=== PATIENT | female | born 1960 | race African-American/Black ===

== ENCOUNTER → 2020-01-05 | Outpatient (CLI) | payer MEDICAID | END | disposition home or self-care (01) | LOC: LAB 12:56 | PROVIDERS: ATTEND Ophthalmology | DX: U07.1 COVID-19 (principal) | CPT/HCPCS: C9803; U0003 ==

== ENCOUNTER → 2020-01-27 | Day surgery (SDC) | payer MEDICAID ==
[~2020-01-27] VITALS: Ht 167.6 cm; Wt 90.7 kg
[~2020-01-27] MED LIST: AMLO10TA80 PO; ASPI-1497 PO; ATOR40TA70 PO; BALANCED SALT IRRIG SOLN 15ML ONE; BALANCED SALT IRRIG SOLN COMB1 500ML OP ONE; BENA40TA9 PO; CIPROFLOXACIN 0.3% OPHTH SOLN 2.5ML ONE; CYCLOPENTOLATE HCL 1% OPHTH DROPS 2ML LEFTEYE NR; FENTANYL CITRATE/PF 50MCG/ML 2ML VIAL ONE; GLIP5TAB12 PO; HYALURONATE SODIUM 10 MG/ML 0.55ML SYRINGE IO ONE; LACTATED RINGERS 1,000 ML IV SCH; LOPE2CAP PO; LOSA50TA41 PO; METF-414 PO; MIDAZOLAM HCL 2 MG/2 ML VIAL ONE; NEO/POLYMYX B SULF/DEXAMETH OPHTH OINT 3.5GM ONE; PHENYLEPHRINE HCL 10% OPHTH DROPS 5ML LEFTEYE NR; PHENYLEPHRINE HCL 10% OPHTH DROPS 5ML LEFTEYE ONE; PREDNISOLONE ACETATE 1% OPHTH DROPS 5ML ONE; TETRACAINE 0.5% OPHTH DROPS 4ML ONE; TROPICAMIDE 1% OPHTH DROPS 15ML LEFTEYE NR; TROPICAMIDE 1% OPHTH DROPS 15ML LEFTEYE ONE
[2020-01-27 10:00] LABS: BASOPHILS % 0.7 % (0.0-2.0); EOSINOPHILS % 1.8 % (0.0-5.0); HEMATOCRIT. 30.3 % (36.0-48.0); HEMOGLOBIN. 9.9 g/dL (12.0-16.0); LYMPHOCYTES % 40.4 % (20.0-50.0); MEAN CORPUSCULAR HEMOGLOBIN 24.9 pg (28.0-32.0); MEAN CORPUSCULAR VOLUME 76.1 fL (81.0-99.0); MEAN PLATELET VOLUME 8.3 fl (7.4-10.4); MONOCYTES % 8.4 % (2.0-8.0); NEUTROPHILS % 48.7 % (40.0-76.0); PLATELET 399 x1000/uL (130-400); RED BLOOD CELL COUNT 3.99 mill/uL (4.2-5.4); RED CELL DISTRIBUTION WIDTH 15.3 % (11.6-14.6)
[2020-01-27 10:04] LABS: CHLORIDE 110 mEq/L (98-107)
== END | disposition home or self-care (01) ==
LOC: OR 08:35
PROVIDERS: ATTEND Ophthalmology
DX: E11.36 Type 2 diabetes mellitus with diabetic cataract (principal); H25.89 Other age-related cataract; I10 Essential (primary) hypertension; E78.00 Pure hypercholesterolemia, unspecified; F20.9 Schizophrenia, unspecified; E66.9 Obesity, unspecified; E11.65 Type 2 diabetes mellitus with hyperglycemia; G44.219 Episodic tension-type headache, not intractable; Z68.32 Body mass index [BMI] 32.0-32.9, adult; Z79.82 Long term (current) use of aspirin; Z79.899 Other long term (current) drug therapy; Z98.890 Other specified postprocedural states; Z79.84 Long term (current) use of oral hypoglycemic drugs
CPT/HCPCS: 36415; 66984; 80048; 85025; 87426; J2250; J3010; J3490

== ENCOUNTER → 2020-07-30 | Outpatient (CLI) | payer MEDICAID ==
[~2020-07-30] MED LIST changes: -BALANCED SALT IRRIG SOLN 15ML ONE; -BALANCED SALT IRRIG SOLN COMB1 500ML OP ONE; -CIPROFLOXACIN 0.3% OPHTH SOLN 2.5ML ONE; -CYCLOPENTOLATE HCL 1% OPHTH DROPS 2ML LEFTEYE NR; -FENTANYL CITRATE/PF 50MCG/ML 2ML VIAL ONE; -HYALURONATE SODIUM 10 MG/ML 0.55ML SYRINGE IO ONE; -LACTATED RINGERS 1,000 ML IV SCH; -MIDAZOLAM HCL 2 MG/2 ML VIAL ONE; -NEO/POLYMYX B SULF/DEXAMETH OPHTH OINT 3.5GM ONE; -PHENYLEPHRINE HCL 10% OPHTH DROPS 5ML LEFTEYE NR; -PHENYLEPHRINE HCL 10% OPHTH DROPS 5ML LEFTEYE ONE; -PREDNISOLONE ACETATE 1% OPHTH DROPS 5ML ONE; -TETRACAINE 0.5% OPHTH DROPS 4ML ONE; -TROPICAMIDE 1% OPHTH DROPS 15ML LEFTEYE NR; -TROPICAMIDE 1% OPHTH DROPS 15ML LEFTEYE ONE
== END | disposition home or self-care (01) ==
LOC: LAB 07:57
PROVIDERS: ATTEND Ophthalmology
DX: Z01.812 Encounter for preprocedural laboratory examination (principal); Z20.822 Contact with and (suspected) exposure to COVID-19
CPT/HCPCS: 87426

== ENCOUNTER → 2020-08-03 | Day surgery (SDC) | payer MEDICAID ==
[~2020-08-03] VITALS: Ht 167.6 cm; Wt 90.7 kg
[~2020-08-03] MED LIST changes: +ATOR20TA65 PO; +BALANCED SALT IRRIG SOLN 15ML ONE; +BALANCED SALT IRRIG SOLN COMB1 500ML OP ONE; +CIPROFLOXACIN 0.3% OPHTH SOLN 2.5ML ONE; +FENTANYL CITRATE/PF 50MCG/ML 2ML VIAL ONE; +HYALURONATE SODIUM 10 MG/ML 0.55ML SYRINGE IO ONE; +KETOROLAC 30MG/ML VIAL ONE; +LIDOCAINE HCL/PF 2% 20 MG/ML 10ML VIAL ONE; +MIDAZOLAM HCL 2 MG/2 ML VIAL ONE; +NEO/POLYMYX B SULF/DEXAMETH OPHTH OINT 3.5GM ONE; +OLAN5TAB3 PO; +PHENYLEPHRINE HCL 10% OPHTH DROPS 5ML ONE; +PHENYLEPHRINE HCL 10% OPHTH DROPS 5ML RIGHTEYE ONE; +PREDNISOLONE ACETATE 1% OPHTH DROPS 5ML ONE; +SODIUM CHLORIDE 0.9% 1,000 ML IV SCH; +TETRACAINE 0.5% OPHTH DROPS 4ML ONE; +TROPICAMIDE 1% OPHTH DROPS 15ML ONE; +TROPICAMIDE 1% OPHTH DROPS 15ML RIGHTEYE ONE
== END | disposition home or self-care (01) ==
LOC: OR 08:35
PROVIDERS: ATTEND Ophthalmology
DX: E11.36 Type 2 diabetes mellitus with diabetic cataract (principal); H25.89 Other age-related cataract; I10 Essential (primary) hypertension; E78.00 Pure hypercholesterolemia, unspecified; F20.9 Schizophrenia, unspecified; E66.9 Obesity, unspecified; Z79.82 Long term (current) use of aspirin; Z79.84 Long term (current) use of oral hypoglycemic drugs; Z79.899 Other long term (current) drug therapy; Z98.890 Other specified postprocedural states; Z68.32 Body mass index [BMI] 32.0-32.9, adult
CPT/HCPCS: 66984; 82962; J1885; J2250; J3010; J3490; V2632

== ENCOUNTER 2020-11-22 17:46 | Emergency (ER) | payer MEDICAID ==
[~2020-11-22] VITALS: Ht 172.7 cm; Wt 99.0 kg
[~2020-11-22 17:46] MED LIST changes: -ATOR40TA70 PO; -BALANCED SALT IRRIG SOLN 15ML ONE; -BALANCED SALT IRRIG SOLN COMB1 500ML OP ONE; -CIPROFLOXACIN 0.3% OPHTH SOLN 2.5ML ONE; -FENTANYL CITRATE/PF 50MCG/ML 2ML VIAL ONE; -HYALURONATE SODIUM 10 MG/ML 0.55ML SYRINGE IO ONE; -KETOROLAC 30MG/ML VIAL ONE; -LIDOCAINE HCL/PF 2% 20 MG/ML 10ML VIAL ONE; -MIDAZOLAM HCL 2 MG/2 ML VIAL ONE; -NEO/POLYMYX B SULF/DEXAMETH OPHTH OINT 3.5GM ONE; -PHENYLEPHRINE HCL 10% OPHTH DROPS 5ML ONE; -PHENYLEPHRINE HCL 10% OPHTH DROPS 5ML RIGHTEYE ONE; -PREDNISOLONE ACETATE 1% OPHTH DROPS 5ML ONE; -SODIUM CHLORIDE 0.9% 1,000 ML IV SCH; -TETRACAINE 0.5% OPHTH DROPS 4ML ONE; -TROPICAMIDE 1% OPHTH DROPS 15ML ONE; -TROPICAMIDE 1% OPHTH DROPS 15ML RIGHTEYE ONE
[2020-11-22 17:50] VITALS: BP 137/76
== END 2020-11-23 00:07 | disposition left against medical advice (07) ==
LOC: ER 17:46
DX: R07.89 Other chest pain (principal); Z53.21 Procedure and treatment not carried out due to patient leaving prior to being seen by health care provider
CPT/HCPCS: 93005

== ENCOUNTER 2023-01-09 12:31 | Emergency (ER) | payer MEDICAID ==
[~2023-01-09] VITALS: Ht 172.7 cm; Wt 100.0 kg
[~2023-01-09 12:31] MED LIST changes: -BENA40TA9 PO; +BENA40TA91 PO; -GLIP5TAB12 PO; +GLIP5TAB22 PO
[2023-01-09 12:44] VITALS: BP 117/60; O2SAT 100
[2023-01-09 13:27] LABS: BASOPHILS % 0.9 % (0.0-2.0); DIFFERENTIAL COMMENT 0; HEMATOCRIT. 30.9 % (36.0-48.0); HEMOGLOBIN. 9.8 g/dL (12.0-16.0); LYMPHOCYTES % 36.5 % (20.0-50.0); MEAN CORPUSCULAR HEMOGLOBIN 24.3 pg (28.0-32.0); MEAN CORPUSCULAR HGB CONC 31.8 g/dL (31.0-37.0); MEAN CORPUSCULAR VOLUME 76.4 fL (81.0-99.0); MEAN PLATELET VOLUME 8.1 fl (7.4-10.4); MONOCYTES % 5.9 % (2.0-8.0); NEUTROPHILS % 54.7 % (40.0-76.0); PLATELET 476 x1000/uL (130-400); RED BLOOD CELL COUNT 4.04 mill/uL (4.2-5.4); RED CELL DISTRIBUTION WIDTH 17.1 % (11.6-14.6); WHITE BLOOD COUNT 5.4 x1000/uL (4.5-11.0)
[2023-01-09 13:59] LABS: CHLORIDE 109 mEq/L (98-107); INDEX HEMOLYSI 1 (1-3); INDEX ICTERIC 1 (1-4); INDEX LIPEMIC 1 (1-3); SODIUM 140 mEq/L (136-145)
[2023-01-09 14:08] LABS: ALANINE AMINOTRANSFERASE 15 IU/L (13-61); ALBUMIN 3.8 g/dL (3.4-5.0); ASPARTATE AMINOTRANSFERASE 11 IU/L (15-37); BILIRUBIN TOTAL 0.3 mg/dL (0.1-1.0); CALCIUM 9.4 mg/dL (8.5-10.1); CARBON DIOXIDE 25 mEq/L (21-32); CREATININE 1.1 mg/dL (0.6-1.3); GLUCOSE 184 mg/dL (70-105); PROTEIN TOTAL 7.8 g/dL (6.0-8.3); TROPONIN I HIGH SENSITIVITY 9 ng/L (<54); UREA NITROGEN BLOOD 17 mg/dL (7-21)
[2023-01-09 15:20] LABS: CLARITY URINE TURBID (CLEAR); COLOR URINE YELLOW (YELLOW); GLUCOSE URINE NEGATIVE (NEGATIVE); KETONES URINE NEGATIVE (NEGATIVE); LEUKOCYTE ESTERASE URINE 3+ (NEGATIVE); NITRITE URINE NEGATIVE (NEGATIVE); OCCULT BLOOD URINE 2+ (NEGATIVE); PH URINE 5.5 (4.5-8.0); PROTEIN URINE 2+ (NEGATIVE); SPECIFIC GRAVITY URINE 1.014 (1.005-1.030); UROBILINOGEN URINE 0.2 E.U./dL (0.2-1.0)
[2023-01-09 16:03] LABS: BACTERIA URINE 2+; SQUAMOUS EPITHELIAL CELL URINE 2+ /lpf (RARE/1+); WBC URINE TNTC /hpf (0-2)
[2023-01-09] MEDS ORDERED: CEFP100T8 MT (21:01)
[2023-01-09 21:20] VITALS: PULSE 89; RESP 18; TEMP 97.8
== END 2023-01-09 21:21 | disposition home or self-care (01) ==
LOC: ER 12:31
DX: K86.9 Disease of pancreas, unspecified (principal); N39.0 Urinary tract infection, site not specified; R05.9 Cough, unspecified; I10 Essential (primary) hypertension; F19.90 Other psychoactive substance use, unspecified, uncomplicated; F20.9 Schizophrenia, unspecified; Z86.73 Personal history of transient ischemic attack (TIA), and cerebral infarction without residual deficits
CPT/HCPCS: 36415; 71045; 74176; 80053; 81003; 84484; 85025; 93005; 99285

== ENCOUNTER 2024-11-12 18:15 | Inpatient (IN) | payer MEDICARE, MEDICAID ==
[~2024-11-12] VITALS: Ht 172.7 cm; Wt 90.9 kg
[2024-11-12 18:15] VITALS: BP 143/87; PULSE 105; RESP 18; TEMP 36.5; O2SAT 96
[~2024-11-12 18:15] MED LIST changes: +ATOR-2 MT; +CEFP100T8 MT; +CLOP-31 MT; +FAMO20TA8 MT; +OLAN10TA72 PO
[2024-11-12] MEDS ORDERED: IPRATROPIUM/ALBUTEROL 0.5-3(2.5)MG/3ML NEB HHN PRN (19:00)
[2024-11-12] MEDS ORDERED: ACETAMINOPHEN 325MG TABLET PO PRN ×2 (19:00→19:10)
[2024-11-12] MEDS ORDERED: ONDANSETRON HCL 4MG/2ML INJ IV PRN (19:00)
[2024-11-12] MEDS ORDERED: DOCUSATE SODIUM 100MG CAPSULE PO PRN (19:00)
[2024-11-12] MEDS ORDERED: GUAIFENESIN 200MG/10ML SUGAR FREE UDC PO PRN (19:00)
[2024-11-12] MEDS ORDERED: CLONIDINE 0.1MG TABLET PO PRN (19:00)
[2024-11-12 20:00] VITALS: BP 144/73; PULSE 72; RESP 18; TEMP 36.3; TEMP 36.3624; O2SAT 95
[2024-11-12] MEDS: ATORVASTATIN CALCIUM 40MG TABLET PO SCH (22:02)
[2024-11-12] MEDS: METOPROLOL TARTRATE 25MG TABLET PO SCH (22:03)
[2024-11-12] MEDS: FAMOTIDINE 20MG TABLET PO SCH (22:03)
[2024-11-12] MEDS: OLANZAPINE 10MG TABLET PO SCH (22:54)
[2024-11-13 05:20] LABS: BASOPHILS % 0.9 % (0.0-2.0); EOSINOPHILS % 2.9 % (0.0-5.0); HEMATOCRIT. 35.5 % (36.0-48.0); HEMOGLOBIN. 11.5 g/dL (12.0-16.0); LYMPHOCYTES % 35.8 % (20.0-50.0); MEAN PLATELET VOLUME 8.0 fl (7.4-10.4); MONOCYTES % 9.6 % (2.0-8.0); NEUTROPHILS % 50.8 % (40.0-76.0); PLATELET 328 x1000/uL (130-400); RED BLOOD CELL COUNT 4.27 mill/uL (4.2-5.4); RED CELL DISTRIBUTION WIDTH 13.7 % (11.6-14.6)
[2024-11-13 05:31] LABS: CREATININE 0.8 mg/dL (0.6-1.0); UREA NITROGEN BLOOD 12 mg/dL (9-23)
[2024-11-13 05:33] LABS: ASPARTATE AMINOTRANSFERASE 30 IU/L (<34); BILIRUBIN TOTAL 0.5 mg/dL (0.1-1.0); PROTEIN TOTAL 6.9 g/dL (6.0-8.3)
[2024-11-13 08:00] VITALS: BP 133/68; PULSE 72; RESP 16; TEMP 36.6; O2SAT 98
[2024-11-13] MEDS: METFORMIN HCL 500MG TABLET PO SCH (09:34)
[2024-11-13] MEDS: LOSARTAN 50 MG TABLET PO SCH (09:35)
[2024-11-13] MEDS: ASPIRIN 81MG TABLET PO SCH (09:35)
[2024-11-13] MEDS: CLOPIDOGREL 75MG TABLET PO SCH (09:35)
[2024-11-13] MEDS: AMLODIPINE 10MG TABLET PO SCH (09:36)
[2024-11-13 20:00] VITALS: BP 122/68; PULSE 76; RESP 18; TEMP 36.4; O2SAT 97
[2024-11-14 07:28] LABS: CLARITY URINE CLEAR (CLEAR); COLOR URINE YELLOW (YELLOW); GLUCOSE URINE NEGATIVE (NEGATIVE); KETONES URINE NEGATIVE (NEGATIVE); LEUKOCYTE ESTERASE URINE 2+ (NEGATIVE); NITRITE URINE NEGATIVE (NEGATIVE); OCCULT BLOOD URINE NEGATIVE (NEGATIVE); PH URINE 6.0 (4.5-8.0); PROTEIN URINE NEGATIVE (NEGATIVE); SPECIFIC GRAVITY URINE 1.008 (1.005-1.030); UROBILINOGEN URINE 0.2 E.U./dL (0.2-1.0)
[2024-11-14 07:41] LABS: BASOPHILS % 0.6 % (0.0-2.0); EOSINOPHILS % 1.9 % (0.0-5.0); HEMATOCRIT. 34.5 % (36.0-48.0); HEMOGLOBIN. 11.2 g/dL (12.0-16.0); LYMPHOCYTES % 32.5 % (20.0-50.0); MEAN PLATELET VOLUME 8.3 fl (7.4-10.4); MONOCYTES % 7.7 % (2.0-8.0); NEUTROPHILS % 57.3 % (40.0-76.0); PLATELET 334 x1000/uL (130-400); RED BLOOD CELL COUNT 4.11 mill/uL (4.2-5.4); RED CELL DISTRIBUTION WIDTH 14.1 % (11.6-14.6)
[2024-11-14 08:00] VITALS: BP 152/78; PULSE 103; RESP 18; TEMP 36.2; O2SAT 98
[2024-11-14 08:10] LABS: FOLIC ACID (FOLATE) SERUM 15.44 ng/mL (>5.38); VITAMIN B12 SERUM 572 pg/mL (211-911)
[2024-11-14 08:38] LABS: CREATININE 1.0 mg/dL (0.6-1.0); UREA NITROGEN BLOOD 15 mg/dL (9-23)
[2024-11-14 08:39] LABS: ASPARTATE AMINOTRANSFERASE 28 IU/L (<34); PROTEIN TOTAL 6.9 g/dL (6.0-8.3)
[2024-11-14 08:40] LABS: BILIRUBIN TOTAL 0.5 mg/dL (0.1-1.0)
[2024-11-14 08:45] LABS: SQUAMOUS EPITHELIAL CELL URINE 1+ /lpf (RARE/1+)
[2024-11-14 08:46] LABS: BACTERIA URINE TRACE; RBC URINE 0-2 /hpf (0-2)
[2024-11-14] MEDS: FERROUS SULFATE 325MG TABLET PO SCH (17:00)
[2024-11-14 20:00] VITALS: BP 115/75; PULSE 88; RESP 20; TEMP 36.4; O2SAT 98
[2024-11-15 07:45] VITALS: BP 125/70; PULSE 66; RESP 16; TEMP 36.2; O2SAT 100
[2024-11-15] MEDS: ASCORBIC ACID 500 MG TABLET PO SCH (08:34)
[2024-11-15] MEDS: MAGNESIUM/ALUMINUM HYDROXIDE/SIMETHICONE 30ML UDC PO PRN (13:03)
[2024-11-15] MEDS: ERGOCALCIFEROL 50000UNITS CAPSULE PO SCH (14:53)
[2024-11-15 20:00] VITALS: BP 128/74; PULSE 86; RESP 17; TEMP 35.9; O2SAT 98
[2024-11-16 08:00] VITALS: BP 134/71; PULSE 92; RESP 18; TEMP 36.4; O2SAT 100
[2024-11-16 10:17] LABS: CREATININE 0.9 mg/dL (0.6-1.0)
[2024-11-16 10:18] LABS: UREA NITROGEN BLOOD 12 mg/dL (9-23)
[2024-11-16 20:00] VITALS: BP_SYST 113; BP_SYST 130; BP_DIAS 71; BP_DIAS 84; PULSE 90; RESP 19; RESP 20; TEMP 35.8; TEMP 36.4; O2SAT 90; O2SAT 98
[2024-11-17 08:00] VITALS: BP 130/69; PULSE 89; RESP 18; TEMP 36.1; O2SAT 100
[2024-11-17 20:00] VITALS: BP 111/69; PULSE 72; RESP 20; TEMP 36.1; O2SAT 98
[2024-11-18 08:00] VITALS: BP 126/54; PULSE 60; RESP 18; TEMP 37; O2SAT 100
[2024-11-18 20:00] VITALS: BP_SYST 122; BP_SYST 129; BP_DIAS 62; BP_DIAS 70; PULSE 70; RESP 18; TEMP 36.3; O2SAT 99
[2024-11-19 08:00] VITALS: BP 114/66; PULSE 74; RESP 16; TEMP 36.4; O2SAT 98
[2024-11-19] MEDS ORDERED: FERR325T6 MT (17:47)
[2024-11-19 20:00] VITALS: BP 136/70; PULSE 80; RESP 18; TEMP 36.6; O2SAT 98
[2024-11-20 08:00] VITALS: BP_SYST 110; BP_SYST 119; BP_DIAS 73; BP_DIAS 75; PULSE 86; RESP 16; TEMP 36.7; O2SAT 95
[2024-11-20 08:30] VITALS: BP 119/75; PULSE 86; RESP 17; TEMP 36.7; O2SAT 96
[2024-11-20 09:47] VITALS: BP 119/75; PULSE 86; RESP 16; TEMP 98.1
[2024-11-22] MEDS ORDERED: AZIT250T12 PO (05:46)
[2024-11-22] MEDS ORDERED: [UNRECOGNIZED DRUG - OTHER] (05:46)
[2024-11-24] MEDS ORDERED: AMLO5TAB88 MT (15:29)
== END 2024-11-20 10:30 | disposition home health service (06) | DRG 65 ==
PROVIDERS: ADMIT Physical Medicine & Rehabilitation Spinal Cord Injury Medicine; ATTEND Internal Medicine
DX: I63.89 Other cerebral infarction (principal); I69.354 Hemiplegia and hemiparesis following cerebral infarction affecting left non-dominant side; I69.392 Facial weakness following cerebral infarction; I69.391 Dysphagia following cerebral infarction; I69.322 Dysarthria following cerebral infarction; I69.320 Aphasia following cerebral infarction; R53.1 Weakness; I10 Essential (primary) hypertension; F31.9 Bipolar disorder, unspecified; D50.9 Iron deficiency anemia, unspecified; E55.9 Vitamin D deficiency, unspecified; F20.9 Schizophrenia, unspecified; E66.811 Obesity, class 1; Z68.30 Body mass index [BMI] 30.0-30.9, adult; Z79.02 Long term (current) use of antithrombotics/antiplatelets; Z79.84 Long term (current) use of oral hypoglycemic drugs; Z91.81 History of falling
CPT/HCPCS: 36415; 80048; 80053; 81003; 82140; 82306; 82550; 82607; 82728; 82746; 83036; 83540; 83550; 84134; 84443; 85025; 87077; 92523; 92610; 97110; 97112; 97116; 97162; 97165; 97530; 97535